=== PATIENT | female | born 1940 | race Caucasian/White ===

== ENCOUNTER 2020-09-27 11:22 | Emergency (ER) | payer MEDICARE, BC ==
[~2020-09-27] VITALS: Ht 157.5 cm; Wt 68.4 kg
[2020-09-27] MEDS ORDERED: MORPHINE SULFATE 4 MG/ML, 1ML IVPush STA (11:41)
[2020-09-27] MEDS ORDERED: ONDANSETRON 2MG/ML, 2ML ONE (11:57)
[2020-09-27] MEDS ORDERED: MORPHINE SULFATE 4 MG/ML, 1ML ONE (11:58)
[2020-09-27] MEDS ORDERED: SODIUM CHLORIDE 0.9% 1,000ML IVBOLUS ONE (12:00)
[2020-09-27] MEDS ORDERED: ONDANSETRON 2MG/ML, 2ML IVPush ONE (12:00)
[2020-09-27] MEDS ORDERED: SODIUM CHLORIDE FLUSH 10ML SYR IVF ONE (12:00)
--- NOTE | 2020-09-27 12:06 | NUR ---
PT C/O COUGH AND GENERALIZED FATIGUE; STARTED WEDNESDAY. WAS SEEN AT ON WEDNESDAY; WAS GIVEN MAALOX FOR STOMACH UPSET. DENIES VOMITING. C/O EPIGASTRIC PAIN & NAUSEA, "A LOT OF BURPING" LAST BM: LAST NIGHT, [place]. 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 DENIES HX ULCER, GERD, OTHER ABD PROBLEMS. REPORTS SNEEZING R/T SEASONAL ALLERGIES. PT A&OX4, RESP EVEN & UNLABORED, SPEECH CLEAR, SKIN WNL. GRANDDAUGHTER IN ROOM.
[2020-09-27 12:13] LABS: BASOPHILS % (AUTO) 1 % (0-1); EOSINOPHILS % (AUTO) 3 % (1-7); LYMPHOCYTES % (AUTO) 14 % (22-44); MEAN CORPUSCULAR HEMOGLOBIN 33.5 pg (27.0-34.8); MEAN CORPUSCULAR HGB CONC 33.3 g/dL (32.4-35.8); MEAN PLATELET VOLUME 9.7 fL (7.4-10.4); MONOCYTES % (AUTO) 9 % (2-9); NEUTROPHILS % (AUTO) 74 % (42-75); PLATELET COUNT 158 x10^3/uL (130-400); RED BLOOD COUNT 4.27 x10^6/uL (3.82-5.3); RED CELL DISTRIBUTION WIDTH 13.7 % (9.6-15.2)
[2020-09-27 12:14] LABS: MD NO
--- NOTE | 2020-09-27 12:20 | NUR ---
PT DENIES PAIN & NAUSEA AT THIS TIME.
--- NOTE | 2020-09-27 12:20 | NUR ---
DR ESQUIVEL AT BS FOR EXAM
[2020-09-27 12:27] LABS: ALANINE AMINOTRANSFERASE 53 U/L (12-78); ALBUMIN 3.9 g/dL (3.4-5.0); ANION GAP 7 mmol/L (5-15); CALCIUM 9.2 mg/dL (8.5-10.1); CHLORIDE 106 mmol/L (98-107); CREATININE 1.45 mg/dL (0.55-1.02)
[2020-09-27 12:30] LABS: ALKALINE PHOSPHATASE 49 U/L (45-117); BILIRUBIN,TOTAL 0.8 mg/dL (0.2-1.0); TOTAL PROTEIN 7.8 g/dL (6.4-8.2)
--- NOTE | 2020-09-27 12:48 | NUR ---
PT WAS AMBULATORY TO & FROM [facility] W/OUT INCIDENT; GAIT STEADY; VOIDED SPECIMEN PROVIDED. PT TO CT PER DAVIAN.
[2020-09-27] MEDS ORDERED: OMNIPAQUE 350 MG/ML, 100ML BOTTLE ONE (13:02)
[2020-09-27 13:13] LABS: MICROSCOPIC AUTO
[2020-09-27] MEDS ORDERED: LISI-606 PO (13:49)
[2020-09-27] MEDS ORDERED: ALLO100T30 PO (13:49)
[2020-09-27] MEDS ORDERED: METO25TA35 PO (13:49)
[2020-09-27] MEDS ORDERED: FENO54TA17 PO (13:49)
[2020-09-27] MEDS ORDERED: ALOG12.52 PO (13:49)
[2020-09-27] MEDS ORDERED: CHRM1TAB PO (13:49)
[2020-09-27] MEDS ORDERED: ATOR20TA86 PO (13:49)
[2020-09-27 13:53] VITALS: BP 140/82
== END 2020-09-27 14:24 | disposition home or self-care (01) ==
LOC: ED 14:00
DX: K85.90 Acute pancreatitis without necrosis or infection, unspecified (principal); R10.84 Generalized abdominal pain; R19.7 Diarrhea, unspecified; R53.1 Weakness; E78.5 Hyperlipidemia, unspecified; E11.9 Type 2 diabetes mellitus without complications; I10 Essential (primary) hypertension; M10.9 Gout, unspecified; Z90.89 Acquired absence of other organs
CPT/HCPCS: 36415; 74177; 80053; 81001; 83690; 85025; 96360; 99285; J7030; Q9967